=== PATIENT | male | born 2000 | race Caucasian/White ===

== ENCOUNTER 2022-04-16 14:53 | Emergency (ER) | payer SELFPAY ==
[2022-04-16 14:55] VITALS: BP 146/131; PULSE 105; RESP 18; TEMP 36.3; O2SAT 95; BMI 24.3
--- NOTE | 2022-04-16 15:20 | EKG12_ITS ---
Test Reason : Blood Pressure : / mmHG Vent. Rate : 088 BPM Atrial Rate : 088 BPM P-R Int : 182 ms QRS Dur : 090 ms QT Int : 352 ms P-R-T Axes : 074 087 063 degrees QTc Int : 425 ms Normal sinus rhythm with sinus arrhythmia Normal ECG Confirmed by BAKARI BARILLAS, JOSE ANTONIO ([id number]), slot editor SHAY COOMBS ([id number]) on 04/19/2022 10:22:49 AM Referred By: Confirmed By:JOSE ANTONIO VILLEGAS MD
--- NOTE | 2022-04-16 15:21 | EX.ED.VIS.PS ---
HPI HPI - Psych History of Present Illness Chief Complaint: Suicidal Narrative Narrative: Patient who denies significant past medical or psychiatric history presents in custody of police. He states that he has been feeling stressed, and depressed, and texted some words to someone that he was with, or of significance to him that he was going to hurt himself. He does show remorse and states that he did not mean it. He denies any previous suicidal ideation or attempt. He does admit to drinking alcohol today. He is employed. He denies any other symptoms but states I do not feel that way any longer. PFSH PFSH Allergy/AdvReac Type Severity Reaction Status Date / Time No Known Allergies Allergy Verified 04/16/22 14:55 Social History Smoking Status: Current every day smoker tobacco type: e-cigarettes ROS ROS ED ROS Narrative Constitutional: No fever, no chills. HEENT: No sore throat. No neck pain. No loss of vision. No rhinorrhea. Cardiovascular: No chest pain. No palpitations. No pedal edema. Respiratory: No cough, no shortness of breath. Abdominal: No abdominal pain. No nausea. No vomiting. Genitourinary: No dysuria. No hematuria. Musculoskeletal: No myalgias. No arthralgias. Neurologic: No headaches. No dizziness. No lightheadedness. Skin: No rash. No change in color. Psychiatric: Positive depression. No anxiety. Texted suicidal words. No real plan. EXAM Physical Exam Narrative Exam Narrative: Afebrile. Vital signs noted. HEENT: Normocephalic. Healing abrasions on forehead and bridge of nose PERRL, EOMI. Neck soft and supple. No point tenderness or step off. Cardiovascular: Regular rate and rhythm with intermittent tachycardia. No murmurs, rubs, or gallops appreciated. Respiratory: No tachypnea. Lungs clear to auscultation bilaterally. Gastrointestinal: Abdomen soft, nontender, with normoactive bowel sounds. No rebound or guarding. Neurological: Awake. Alert. Oriented to person, place, and situation. Nonfocal, nonlateralizing. Skin: No rash. Normal color. No pallor. Musculoskeletal: No pedal edema. Full range of motion extremities. Psychiatric: Mild depression, currently denying suicidal ideation. Cooperative. Const Vital Signs: 04/16/22 14:55 04/16/22 19:50 Temperature 97.3 F L Temperature Source Temporal Pulse Rate 105 H 102 H Respiratory Rate 18 16 Blood Pressure 146/131 H 137/81 H Blood Pressure Mean 136 99 Pulse Ox 95 100 Oxygen Delivery Method Room Air Room Air MDM MDM MDM Narrative Medical decision making narrative: Medical screening labs were obtained. His labs are grossly unremarkable except for his ethyl alcohol level elevated at 205. Repeat is now 74. I do feel he is medically cleared for evaluation by crisis/counseling center. Upon their evaluation, patient was able to contract for safety. He is no longer suicidal. I do feel that his alcohol intoxication may have contributed to that, but he did show remorse even on examination. He will follow-up with the counseling center. He will be discharged. Return instructions were reviewed. Disposition is discharged home in stable condition. Lab Data Attestation: I reviewed the patient's lab results. Labs: Laboratory Results - last 24 hr 04/16/22 04/16/22 04/16/22 15:40 15:40 15:40 WBC 6.6 RBC 5.13 Hgb 16.5 Hct 47.3 MCV 92.2 MCH 32.2 H MCHC 34.9 RDW Std Deviation 39.8 RDW Coeff of Elliot 11.8 Plt Count 202 MPV 10.7 Immature Gran % (Auto) 0.500 Neut % (Auto) 74.7 H Lymph % (Auto) 19.2 [place] % (Auto) 5.0 Eos % (Auto) 0.3 Baso % (Auto) 0.3 Absolute Neuts (auto) 4.9 Absolute Lymphs (auto) 1.27 Nucleated RBC % 0 Sodium Potassium Chloride Carbon Dioxide Anion Gap BUN Creatinine Estim Creat Clear Calc Est GFR (MDRD) Af Amer Est GFR (MDRD) Non-Af BUN/Creatinine Ratio Glucose Calcium Total Bilirubin AST ALT Alkaline Phosphatase Total Protein Albumin Globulin Albumin/Globulin Ratio TSH Urine Opiates Screen NEGATIVE Urine Methadone Screen NEGATIVE Ur Barbiturates Screen NEGATIVE Ur Phencyclidine Scrn NEGATIVE Ur Amphetamines Screen NEGATIVE MDMA (Ecstasy) Screen NEGATIVE U Benzodiazepines Scrn NEGATIVE Urine Cocaine Screen NEGATIVE U Cannabinoids Screen NEGATIVE Ur Drug Screen Comment Ethyl Alcohol 205.0 04/16/22 04/16/22 04/16/22 15:40 15:40 20:43 WBC RBC Hgb Hct MCV MCH MCHC RDW Std Deviation RDW Coeff of Elliot Plt Count MPV Immature Gran % (Auto) Neut % (Auto) Lymph % (Auto) [place] % (Auto) Eos % (Auto) Baso % (Auto) Absolute Neuts (auto) Absolute Lymphs (auto) Nucleated RBC % Sodium 143 Potassium 3.5 Chloride 109 H Carbon Dioxide 25.0 Anion Gap 9 BUN 9 Creatinine 0.97 Estim Creat Clear Calc 123.34 Est GFR (MDRD) Af Amer 124 Est GFR (MDRD) Non-Af 102 BUN/Creatinine Ratio 9.3 L Glucose 89 Calcium 9.7 Total Bilirubin 0.50 AST 18 ALT 31 Alkaline Phosphatase 62 Total Protein 8.3 H Albumin 4.8 Globulin 3.5 Albumin/Globulin Ratio 1.4 TSH 0.91 Urine Opiates Screen Urine Methadone Screen Ur Barbiturates Screen Ur Phencyclidine Scrn Ur Amphetamines Screen MDMA (Ecstasy) Screen U Benzodiazepines Scrn Urine Cocaine Screen U Cannabinoids Screen Ur Drug Screen Comment Ethyl Alcohol 74.0 Discharge Plan Triage Chief Complaint: Suicidal ED Provider: Memo Guillory Dx/Rx/DC Orders Clinical Impression: Alcohol intoxication, Feeling suicidal Instructions: Suicide Warning Signs What To Do, ED Alcohol Intoxication Primary Care Provider: Care Physician,No Primary Referrals: Counseling,Center [Group of Physicians] - As soon as possible NOT,DEFINED [Non-Staff] - Activity Restrictions/Additional Instructions: You have contracted for safety with the counseling center. Return with any increased thoughts of suicide, new or worsening symptoms. Disposition Disposition: Home, Self Care
[2022-04-16 15:46] LABS: Absolute Lymphocyte Count 1.27 X10^3/uL (0.83-4.51); Absolute Neutrophil Count 4.9 X10^3/uL (2.0-7.7); Basophil# 0.02 X10^3/uL; Basophil% 0.3 % (0-1); Eosinophil# 0.02 X10^3/uL; Eosinophils% 0.3 % (0-5); Hematocrit 47.3 % (40-54); Hemoglobin 16.5 g/dL (13.0-16.5); Lymphocyte # 1.27 X10^3/ul (0.83-4.51); Lymphocyte % 19.2 % (19-41); Mean Corp Hgb Conc 34.9 g/dL (32-36); Mean Corpuscular Hgb 32.2 pg (27.0-32.0); Mean Corpuscular Volume 92.2 fL (80-94); Mean Platelet Vol. 10.7 fl (6.2-12.0); Monocyte# 0.33 X10^3/uL; NRBC Flagged by Analyzer 0 % (0-5); Neutrophil # 4.93 X10^3/uL (2.7-7.7); Neutrophil % 74.7 % (47-70); Platelet Count 202 K/mm3 (150-450); RBC Distribution Width CV 11.8 % (11.6-14.6); RBC Distribution Width SD 39.8 fl (35.1-43.9); Red Blood Count 5.13 M/mm3 (4.6-6.2); White Blood Count 6.6 K/mm3 (4.4-11.0)
--- NOTE | 2022-04-16 15:49 | NURSING ---
SPOKE WITH CYNTHIA FROM CRISIS TO INFORM HER OF PT, FACESHEET FAXED TO CRISIS AT THIS TIME
--- NOTE | 2022-04-16 15:49 | CM.ED ---
Addendum entered by Maritza Zavala 04/16/22 19:40: LESLIEW received call from Courtney and she inquired if patient is Buddhism.SW spoke to patient and he reports he is not Buddhism. SW also requested SSN and patient said that he does not have it and does not know it. Courtney updated. SW went back to the room and stated Crisis will evaluate patient. Patient said that he wants a blood test again as it was an hour since his BAL was checked. SW advised it will need to wait for 4 hours. Patient voiced frustration. SW texted Courtney at Crisis. SW advised that this procedure writer had not spoke to [facility] about patient's presentation in [place]. SW also did not have a pink slip from the police as to what transpired. Advised patient could be reassessed at 8:30pm. Plan: Crisis to evaluate Maritza COLVIN Original Note: SW met with patient. He voiced he has no insurance. Registration also noted that patient has no insurance. LESLIE updated MD [facility] that patient has no insurance and needs to be seen by crisis. Arlee Slip completed for patient. LESLIE requested ED staff call and speak to Crisis regarding assessment for patient. Maritza COLVIN
[2022-04-16 16:06] LABS: ALB/GLOB Ratio 1.4 RATIO (0.9-2.4); AST(SGOT) 18 U/L (15-37); Alanine Aminotransfer ALT/SGPT 31 U/L (16-61); Albumin, Serum 4.8 g/dL (3.2-5.0); Alkaline Phosphatase 62 U/L (45-117); Anion Gap 9 (5-15); BUN 9 mg/dL (7-18); BUN/Creat Ratio 9.3 RATIO (10-20); Calcium,Total 9.7 mg/dL (8.5-10.1); Chloride 109 mmol/L (98-107); Creatinine, Serum 0.97 mg/dL (0.70-1.30); EST Glomerular Filtration Rate 102 mL/min (>60); Est Glom Filt Rate - Afr Amer 124 mL/min (>60); Estimated Creatinine Clearance 123.34 ml/min; Globulin 3.5 g/dL (2.2-4.2); Glucose 89 mg/dL (74-106); Potassium 3.5 mmol/L (3.5-5.1); Protein, Total 8.3 g/dL (6.4-8.2); Sodium Level 143 mmol/L (136-145)
[2022-04-16 16:18] LABS: Amphetamine Urine VISTA NEGATIVE (<1000 ng/mL); Barbiturate Urine VISTA NEGATIVE (< 200 ng/mL); Benzodiazepine Urine VISTA NEGATIVE (< 200 ng/mL); Cocaine Urine VISTA NEGATIVE (< 300 ng/mL); Ecstacy Urine VISTA NEGATIVE (< 500 ng/mL); Methadone Urine VISTA NEGATIVE (< 300 ng/mL); PCP Urine VISTA NEGATIVE (< 25 ng/mL); THC Urine VISTA NEGATIVE (< 50 ng/mL); Vista UDS pH Range 6
[2022-04-16 18:37] LABS: Thyroid Stim Hormone (TSH) 0.91 uIU/mL (0.358-3.74)
[2022-04-16] MEDS: Nicotine Polacrilex 2 MG GUM PO (19:04)
[2022-04-16 19:50] VITALS: BP 137/81; PULSE 102; RESP 16; O2SAT 100
[2022-04-16 23:12] VITALS: BP 148/90; PULSE 80; RESP 16; O2SAT 98
== END 2022-04-16 23:13 | disposition home or self-care (01) ==
PROVIDERS: Emergency Provider Emergency Medicine; Visit Provider Emergency Medicine
DX: R45.851 Suicidal ideations (principal); F10.129 Alcohol abuse with intoxication, unspecified; Y90.7 Blood alcohol level of 200-239 mg/100 ml; F17.290 Nicotine dependence, other tobacco product, uncomplicated
CPT/HCPCS: 36415; 80053; 80307; 82077; 84443; 85025; 93005; 99283